=== PATIENT | male | born 1965 | race Caucasian/White ===

== ENCOUNTER 2020-09-13 14:19 | Emergency (ER) | payer MEDICARE, OTHER ==
[~2020-09-13 14:19] MED LIST: ALDACTONE25 MG PO; AMLODIPINE BESY10 MG PO; CATAPRES0.2 MG PO; COREG 25MG TAB25 MG PO; COZAAR100 MG PO; FISH OIL 1,0001 EACH PO; HUMALOG MI100 UNITS1 SC; HYDRALAZINE HCL25 MG PO; ISOSORBIDE MON120 MG PO; LASIX40 MG PO; LIPITOR40 MG PO; PROAIR HFA8.5 GM INH; PROTONIX40 MG PO; ROBITUSSIN COU237 M1 PO; SYNTHROID88 MCG PO; TRAZODONE HCL100 MG PO; ZOFRAN ODT 4 MG4 MG PO; ZOLOFT100 MG PO
[2020-09-13] MEDS ORDERED: IBUPROFEN800 MG PO (15:55)
== END 2020-09-13 16:20 | disposition home or self-care (01) ==
LOC: ER1 14:19
DX: S86.912A Strain of unspecified muscle(s) and tendon(s) at lower leg level, left leg, initial encounter (principal); I10 Essential (primary) hypertension; E11.9 Type 2 diabetes mellitus without complications; Z95.1 Presence of aortocoronary bypass graft; W19.XXXA Unspecified fall, initial encounter; Y92.009 Unspecified place in unspecified non-institutional (private) residence as the place of occurrence of the external cause
CPT/HCPCS: 73564; 96372; 99283; J1885

== ENCOUNTER → 2020-09-28 | Outpatient (CLI) | payer MEDICARE, OTHER ==
[~2020-09-28] MED LIST changes: +ARTHRITIS PAIN100 GM TP; +ASPIRIN EC81 MG PO; +CATAPRES 0.1MG0.1 MG PO; +CLARITIN10 MG PO; +FERROUS SULFAT325 M2 PO; +FLONASE 0.05% N16 GM; +IBUPROFEN800 MG PO; +NEURONTIN600 MG PO; +NOVOLIN 70100 UNIT/1 SC; +VITAMIN D21250 MCG PO
[2020-09-29 10:13] LABS: CREATININE, URINE 71.7 mg/dL (Not Estab.)
== END ==
LOC: KOH-I 14:22 → LAB 14:22 → KOH-I 16:30
PROVIDERS: Nurse Practitioner
DX: E11.9 Type 2 diabetes mellitus without complications (principal); M79.89 Other specified soft tissue disorders; M25.862 Other specified joint disorders, left knee; M11.262 Other chondrocalcinosis, left knee
CPT/HCPCS: 36415; 73700; 80048; 82043; 82570

== ENCOUNTER 2021-01-07 06:28 | Observation (INO) | payer OTHER ==
[~2021-01-07] VITALS: Ht 172.7 cm; Wt 117.9 kg
[~2021-01-07 06:28] MED LIST changes: -ARTHRITIS PAIN100 GM TP; -ASPIRIN EC81 MG PO; -CATAPRES 0.1MG0.1 MG PO; -CLARITIN10 MG PO; -FERROUS SULFAT325 M2 PO; -FLONASE 0.05% N16 GM; -NEURONTIN600 MG PO; -NOVOLIN 70100 UNIT/1 SC; -VITAMIN D21250 MCG PO
[2021-01-07 06:57] LABS: HEMOGLOBIN 13.4 gm/dl (14.0-17.5); RED BLOOD COUNT 4.33 M/UL (4.20-5.50); WHITE BLOOD COUNT 5.5 K/UL (4.5-11.0)
[2021-01-07 07:19] LABS: BUN/CREATININE RATIO 19 (0-10)
[2021-01-07] MEDS ORDERED: FERROUS SULFAT325 M2 PO (08:12)
[2021-01-07] MEDS ORDERED: NEURONTIN600 MG PO (08:18)
[2021-01-07] MEDS ORDERED: NOVOLIN 70100 UNIT/1 SC ×3 (11:59→12:00)
[2021-01-07] MEDS ORDERED: VITAMIN D21250 MCG PO (12:01)
[2021-01-07] MEDS ORDERED: CLARITIN10 MG PO (12:01)
[2021-01-07] MEDS ORDERED: ARTHRITIS PAIN100 GM TP (12:02)
[2021-01-07] MEDS ORDERED: FLONASE 0.05% N16 GM (12:03)
[2021-01-08 06:10] LABS: HEMOGLOBIN 13.1 gm/dl (14.0-17.5); RED BLOOD COUNT 4.25 M/UL (4.20-5.50)
[2021-01-08 06:11] LABS: WHITE BLOOD COUNT 7.5 K/UL (4.5-11.0)
[2021-01-08 06:40] LABS: BUN/CREATININE RATIO 19 (0-10)
[2021-01-08] MEDS ORDERED: CATAPRES 0.1MG0.1 MG PO (13:49)
[2021-01-08] MEDS ORDERED: ASPIRIN EC81 MG PO (13:49)
== END 2021-01-08 16:32 | disposition home or self-care (01) ==
LOC: ER1 06:28 → MED SURG 4 09:56 → CDU 09:56 → MED SURG 4 22:45
PROVIDERS: Emergency Medicine; Physician Assistant; ADMIT Internal Medicine
DX: I13.0 Hypertensive heart and chronic kidney disease with heart failure and stage 1 through stage 4 chronic kidney disease, or unspecified chronic kidney disease (principal); E11.22 Type 2 diabetes mellitus with diabetic chronic kidney disease; N18.30 Chronic kidney disease, stage 3 unspecified; I50.33 Acute on chronic diastolic (congestive) heart failure; J96.01 Acute respiratory failure with hypoxia; D69.6 Thrombocytopenia, unspecified; E11.65 Type 2 diabetes mellitus with hyperglycemia; I25.10 Atherosclerotic heart disease of native coronary artery without angina pectoris; G47.33 Obstructive sleep apnea (adult) (pediatric); I16.0 Hypertensive urgency; E78.5 Hyperlipidemia, unspecified; E03.9 Hypothyroidism, unspecified; E66.9 Obesity, unspecified; Z95.1 Presence of aortocoronary bypass graft; Z99.89 Dependence on other enabling machines and devices; Z89.511 Acquired absence of right leg below knee; Z68.39 Body mass index [BMI] 39.0-39.9, adult; Z79.4 Long term (current) use of insulin; Z79.899 Other long term (current) drug therapy; Z20.822 Contact with and (suspected) exposure to COVID-19
CPT/HCPCS: ECHO; 0240U; 36600; 71045; 80048; 80053; 82550; 82553; 82803; 82962; 83880; 84484; 85025; 93005; 93306; 96374; 96376; 99285; G0378; J0360; J1940

== ENCOUNTER → 2021-01-24 | Outpatient (CLI) | payer OTHER ==
[~2021-01-24] MED LIST changes: +AMITRIPTYLINE H25 MG PO; +ARTHRITIS PAIN100 GM TP; +ASPIRIN EC81 MG PO; +AUGMENTIN 875-1 EACH PO; +CATAPRES 0.1MG0.1 MG PO; +CLARITIN10 MG PO; +CLONIDINE HCL0.2 MG PO; +DRISDOL1250 MCG PO; +FERROUS SULFAT325 M2 PO; +FLONASE 0.05% N16 GM; +HUMULIN R500 UNIT/1 SC; +HYDROCODON-ACE1 EAC4 PO; +LOVAZA1 GM PO; +MEDROL DOSEPAK 24 MG PO; +METHOCARBAMOL500 MG PO; +NEURONTIN600 MG PO; +NORVASC10 MG PO; +NOVOLIN 70100 UNIT/1 SC; +PEPCID40 MG PO; +SPIRONOLACTONE25 MG PO; +VITAMIN D21250 MCG PO
== END ==
LOC: RAD 14:58
DX: M25.561 Pain in right knee (principal); M51.36 Other intervertebral disc degeneration, lumbar region; Z89.511 Acquired absence of right leg below knee
CPT/HCPCS: 72110; 73564

== ENCOUNTER 2021-02-09 10:19 | Emergency (ER) | payer OTHER ==
[~2021-02-09 10:19] MED LIST changes: -AMITRIPTYLINE H25 MG PO; -AUGMENTIN 875-1 EACH PO; -CLONIDINE HCL0.2 MG PO; -DRISDOL1250 MCG PO; -HUMULIN R500 UNIT/1 SC; -HYDROCODON-ACE1 EAC4 PO; -LOVAZA1 GM PO; -MEDROL DOSEPAK 24 MG PO; -METHOCARBAMOL500 MG PO; -NORVASC10 MG PO; -PEPCID40 MG PO; -SPIRONOLACTONE25 MG PO
[2021-02-09] MEDS ORDERED: HYDROCODON-ACE1 EAC4 PO (15:02)
[2021-02-09] MEDS ORDERED: METHOCARBAMOL500 MG PO (15:09)
[2021-02-09] MEDS ORDERED: MEDROL DOSEPAK 24 MG PO (15:09)
== END 2021-02-09 15:00 | disposition home or self-care (01) ==
LOC: ER1 10:19
DX: M48.061 Spinal stenosis, lumbar region without neurogenic claudication (principal); I25.10 Atherosclerotic heart disease of native coronary artery without angina pectoris; I50.9 Heart failure, unspecified; E11.9 Type 2 diabetes mellitus without complications; Z95.1 Presence of aortocoronary bypass graft; Z89.512 Acquired absence of left leg below knee
CPT/HCPCS: 72131; 96372; 99283; J2360; J2930

== ENCOUNTER 2021-02-14 19:19 | Emergency (ER) | payer OTHER ==
[~2021-02-14 19:19] MED LIST changes: +HYDROCODON-ACE1 EAC4 PO; +MEDROL DOSEPAK 24 MG PO; +METHOCARBAMOL500 MG PO
== END 2021-02-14 20:32 | disposition home or self-care (01) ==
LOC: ER1 19:19
DX: G89.29 Other chronic pain (principal); M54.9 Dorsalgia, unspecified
CPT/HCPCS: 96372; 96374; 99283; J2270; J2405

== ENCOUNTER 2021-02-15 18:48 | Inpatient (IN) | payer OTHER ==
[~2021-02-15] VITALS: Ht 172.7 cm; Wt 113.4 kg
[2021-02-15 19:23] LABS: HEMOGLOBIN 15.5 gm/dl (14.0-17.5); RED BLOOD COUNT 5.15 M/UL (4.20-5.50)
[2021-02-17 00:26] LABS: HEMOGLOBIN 14.1 gm/dl (14.0-17.5); RED BLOOD COUNT 4.7 M/UL (4.20-5.50); WHITE BLOOD COUNT 11.8 K/UL (4.5-11.0)
[2021-02-18 04:11] LABS: HEMOGLOBIN 13.6 gm/dl (14.0-17.5); RED BLOOD COUNT 4.54 M/UL (4.20-5.50); WHITE BLOOD COUNT 12.6 K/UL (4.5-11.0)
[2021-02-18] MEDS ORDERED: CLONIDINE HCL0.2 MG PO (10:37)
[2021-02-18] MEDS ORDERED: LASIX40 MG PO (10:39)
[2021-02-18] MEDS ORDERED: LOVAZA1 GM PO (10:43)
[2021-02-18] MEDS ORDERED: HUMULIN R500 UNIT/1 SC ×3 (10:47→10:49)
[2021-02-18 14:25] LABS: RBC (AUTOMATED) 100 10^6 (0); WBC (AUTOMATED 14 10^3 (0-5)
[2021-02-18 14:35] LABS: GLUCOSE,CSF 153 mg/dL (50-80); TOTAL PROTEIN,CSF 99 mg/dL (20-45)
[2021-02-18] MEDS ORDERED: NORVASC10 MG PO (16:15)
[2021-02-18] MEDS ORDERED: PEPCID40 MG PO (17:01)
[2021-02-18] MEDS ORDERED: AMITRIPTYLINE H25 MG PO (17:02)
[2021-02-19 07:00] LABS: BUN/CREATININE RATIO 28 (0-10)
[2021-02-19 10:26] LABS: HEMOGLOBIN 13.3 gm/dl (14.0-17.5); RED BLOOD COUNT 4.57 M/UL (4.20-5.50); WHITE BLOOD COUNT 14.3 K/UL (4.5-11.0)
[2021-02-21 18:11] LABS: AMPHETAMINES, URINE Negative ng/mL (Cutoff=1000); BARBITURATE Negative ng/mL (Cutoff=200); BENZODIAZEPINES Negative ng/mL (Cutoff=200); CANNABINOIDS Negative ng/mL (Cutoff=20); COCAINE (METABOLITE) Negative ng/mL (Cutoff=300); CREATININE 88.7 mg/dL (20.0-300.0); MEPERIDINE Negative ng/mL (Cutoff=200); METHADONE Negative ng/mL (Cutoff=300); OPIATES Negative ng/mL (Cutoff=300); OPIATES See Final Results ng/mL (Cutoff=300); PHENCYCLIDINE Negative ng/mL (Cutoff=25); PROPOXYPHENE Negative ng/mL (Cutoff=300)
== END 2021-02-19 12:00 | disposition home or self-care (01) | DRG 637 ==
LOC: ER1 18:48 → CDU 02-18 09:00
PROVIDERS: Emergency Medicine; Family Medicine; Physician Assistant; ADMIT Internal Medicine
PROC: 009U3ZX Drainage of Spinal Canal, Percutaneous Approach, Diagnostic (ICD-10-PCS; principal; 2021-02-18)
DX: E11.00 Type 2 diabetes mellitus with hyperosmolarity without nonketotic hyperglycemic-hyperosmolar coma (NKHHC) (principal); G92 Toxic encephalopathy; N17.9 Acute kidney failure, unspecified; I13.0 Hypertensive heart and chronic kidney disease with heart failure and stage 1 through stage 4 chronic kidney disease, or unspecified chronic kidney disease; N18.30 Chronic kidney disease, stage 3 unspecified; Z20.822 Contact with and (suspected) exposure to COVID-19; E11.22 Type 2 diabetes mellitus with diabetic chronic kidney disease; I25.10 Atherosclerotic heart disease of native coronary artery without angina pectoris; E66.01 Morbid (severe) obesity due to excess calories; E03.9 Hypothyroidism, unspecified; E78.5 Hyperlipidemia, unspecified; D69.6 Thrombocytopenia, unspecified; E11.65 Type 2 diabetes mellitus with hyperglycemia; I16.0 Hypertensive urgency; G47.33 Obstructive sleep apnea (adult) (pediatric); Z95.5 Presence of coronary angioplasty implant and graft; Z90.49 Acquired absence of other specified parts of digestive tract; Z89.511 Acquired absence of right leg below knee; Z98.41 Cataract extraction status, right eye; Z98.42 Cataract extraction status, left eye; Z98.890 Other specified postprocedural states; Z80.1 Family history of malignant neoplasm of trachea, bronchus and lung; Z83.3 Family history of diabetes mellitus; Z99.81 Dependence on supplemental oxygen; Z79.899 Other long term (current) drug therapy; Z79.82 Long term (current) use of aspirin; Z79.4 Long term (current) use of insulin
CPT/HCPCS: 36600; 70450; 70551; 71045; 80048; 80053; 80307; 81001; 82140; 82550; 82553; 82607; 82803; 82945; 82962; 83605; 83735; 83874; 83880; 84100; 84157; 84439; 84443; 84484; 85025; 85610; 86140; 87040; 87070; 87086; 87205; 87206; 87252; 89051; 93005; 96374; 96375; 96376; 99284; G0480; J0360; J1170; J1200; J1630; J2060; J2270; J2405; J3411; J3486; J7030; U0002

== ENCOUNTER 2021-02-22 04:58 | Inpatient (IN) | payer OTHER ==
[~2021-02-22] VITALS: Ht 172.7 cm; Wt 108.9 kg
[~2021-02-22 04:58] MED LIST changes: +AMITRIPTYLINE H25 MG PO; +CLONIDINE HCL0.2 MG PO; +HUMULIN R500 UNIT/1 SC; +LOVAZA1 GM PO; +NORVASC10 MG PO; +PEPCID40 MG PO
[2021-02-22 05:35] LABS: HEMOGLOBIN 11.7 gm/dl (14.0-17.5); RED BLOOD COUNT 4.19 M/UL (4.20-5.50)
[2021-02-22 05:36] LABS: WHITE BLOOD COUNT 28.6 K/UL (4.5-11.0)
[2021-02-22 06:01] LABS: BUN/CREATININE RATIO 20 (0-10)
[2021-02-22 14:31] LABS: ADENOVIRUS F 40/41 Not Detected (Negative); ASTROVIRUS Not Detected (Negative); CAMPYLOBACTER Not Detected (Negative); CLOSTRIDIUM DIFFICILE TOX A/B Not Detected (Negative); CRYPTOSPORIDIUM Not Detected (Negative); E.COLI 0157 Not Detected (Negative); ENTAMOEBA HISTOLYTICA Not Detected (Negative); ENTEROAGGREGATIVE E.COLI (EAEC Not Detected (Negative); ENTEROPATHOGENIC E.COLI (EPEC) Not Detected (Negative); ENTEROTOXIGENIC E.COLI (ETEC) Not Detected (Negative); GIARDIA LAMBLIA Not Detected (Negative); NOROVIRUS GI/GII Not Detected (Negative); PLESIOMONAS SHIGELLOIDES Not Detected (Negative); ROTOVIRUS A Not Detected (Negative); SALMONELLA Not Detected (Negative); SAPOVIRUS Not Detected (Negative); SHIG/ENTEROINVAS.ECOLI (EIEC) Not Detected (Negative); SHIGA-LIK TOX.PRO.E.COLI (STEC Not Detected (Negative); VIBRIO Not Detected (Negative); VIBRIO CHOLERAE Not Detected (Negative); YERSINIA ENTEROCOLITICA Not Detected (Negative)
[2021-02-23 04:26] LABS: HEMOGLOBIN 10.1 gm/dl (14.0-17.5)
[2021-02-23 04:30] LABS: RED BLOOD COUNT 3.53 M/UL (4.20-5.50); WHITE BLOOD COUNT 15.8 K/UL (4.5-11.0)
[2021-02-24 02:36] LABS: HEMOGLOBIN 10.5 gm/dl (14.0-17.5); RED BLOOD COUNT 3.76 M/UL (4.20-5.50); WHITE BLOOD COUNT 16.1 K/UL (4.5-11.0)
[2021-02-25 08:26] LABS: HEMOGLOBIN 10.8 gm/dl (14.0-17.5); RED BLOOD COUNT 3.9 M/UL (4.20-5.50); WHITE BLOOD COUNT 12.4 K/UL (4.5-11.0)
[2021-02-25 09:00] LABS: BUN/CREATININE RATIO 33 (0-10)
[2021-02-26] MEDS ORDERED: CLONIDINE HCL0.2 MG PO (14:42)
[2021-02-26] MEDS ORDERED: TRAZODONE HCL100 MG PO (14:43)
[2021-02-26] MEDS ORDERED: SPIRONOLACTONE25 MG PO (14:44)
[2021-02-26] MEDS ORDERED: DRISDOL1250 MCG PO (14:45)
== END 2021-02-25 19:56 | disposition home or self-care (01) | DRG 871 ==
LOC: ER1 04:58 → CDU 09:37 → M/S 02-24 09:57
PROVIDERS: Emergency Medicine; Physician Assistant Medical; ADMIT Internal Medicine Infectious Disease
PROC: 0F9430Z Drainage of Gallbladder with Drainage Device, Percutaneous Approach (ICD-10-PCS; principal; 2021-02-22)
DX: A41.9 Sepsis, unspecified organism (principal); R65.21 Severe sepsis with septic shock; G93.41 Metabolic encephalopathy; N17.0 Acute kidney failure with tubular necrosis; K80.00 Calculus of gallbladder with acute cholecystitis without obstruction; I13.0 Hypertensive heart and chronic kidney disease with heart failure and stage 1 through stage 4 chronic kidney disease, or unspecified chronic kidney disease; E87.2 Acidosis; Z20.822 Contact with and (suspected) exposure to COVID-19; R19.7 Diarrhea, unspecified; E11.649 Type 2 diabetes mellitus with hypoglycemia without coma; E87.6 Hypokalemia; D69.6 Thrombocytopenia, unspecified; G47.33 Obstructive sleep apnea (adult) (pediatric); I50.9 Heart failure, unspecified; N18.30 Chronic kidney disease, stage 3 unspecified; E11.22 Type 2 diabetes mellitus with diabetic chronic kidney disease; I25.10 Atherosclerotic heart disease of native coronary artery without angina pectoris; E03.9 Hypothyroidism, unspecified; E78.5 Hyperlipidemia, unspecified; Z89.511 Acquired absence of right leg below knee; Z95.1 Presence of aortocoronary bypass graft; Z79.82 Long term (current) use of aspirin; Z79.899 Other long term (current) drug therapy; Z80.1 Family history of malignant neoplasm of trachea, bronchus and lung; Z90.89 Acquired absence of other organs; Z98.890 Other specified postprocedural states; Z83.3 Family history of diabetes mellitus
CPT/HCPCS: 36415; 71045; 76705; 80048; 80053; 80307; 81001; 82009; 82550; 82553; 82962; 83605; 83690; 83735; 83874; 84439; 84443; 84484; 85025; 85027; 87040; 87070; 87077; 87186; 87507; 93005; 96365; 96375; 99285; J1650; J2060; J2185; J7120; U0002

== ENCOUNTER 2021-02-26 00:26 | Inpatient (IN) | payer OTHER ==
[~2021-02-26] VITALS: Ht 172.7 cm; Wt 127.0 kg
[2021-02-26 02:11] LABS: HEMOGLOBIN 11.7 gm/dl (14.0-17.5); RED BLOOD COUNT 4.17 M/UL (4.20-5.50)
[2021-02-26 02:13] LABS: WHITE BLOOD COUNT 19.9 K/UL (4.5-11.0)
[2021-02-26] MEDS ORDERED: CLONIDINE HCL0.2 MG PO (14:42)
[2021-02-26] MEDS ORDERED: TRAZODONE HCL100 MG PO (14:43)
[2021-02-26] MEDS ORDERED: SPIRONOLACTONE25 MG PO (14:44)
[2021-02-26] MEDS ORDERED: DRISDOL1250 MCG PO (14:45)
[2021-02-27 06:13] LABS: RED BLOOD COUNT 3.61 M/UL (4.20-5.50); WHITE BLOOD COUNT 14.8 K/UL (4.5-11.0)
[2021-02-28 07:20] LABS: HEMOGLOBIN 8.9 gm/dl (14.0-17.5)
[2021-02-28 07:29] LABS: RED BLOOD COUNT 3.23 M/UL (4.20-5.50); WHITE BLOOD COUNT 10.7 K/UL (4.5-11.0)
--- NOTE | 2021-02-28 20:00 | NUR ---
Patient set off bed alarm. Me and Sujatha PATCH WASHER walk into the room and patient is sitting on the side of the bed. Patient states he wishes to go home. I explain to patient that he has not been discharged. I ask the patient to get back into bed because we could not leave him sitting on the side of the bed. Patient ignored me and Sujatha for 10 minutes before getting back into bed. Patient stated that he wanted his medication. I told patient to get back into bed and I could go get his medicine. I came back with his medicine which included IV morphine. Patient stated "I do not want this IV anymore, I want it out" and ripped his IV out before I could administer the morphine. I told patient that I would have to start another IV. Patient stated that he was not going to let me start another IV for him and that he refused the morphine and did not care about his pain medication. I educated the patient about the need for an IV incase of emergency, but he stated I was not going to stick him again. Patient also refused blood sugar check. Patient did take all night time PO meds.
[2021-03-01 07:40] LABS: WHITE BLOOD COUNT 12.7 K/UL (4.5-11.0)
[2021-03-01 07:50] LABS: RED BLOOD COUNT 3.56 M/UL (4.20-5.50)
[2021-03-01 07:52] LABS: BUN/CREATININE RATIO 29 (0-10)
[2021-03-01] MEDS ORDERED: AUGMENTIN 875-1 EACH PO (09:54)
== END 2021-03-01 10:50 | disposition home or self-care (01) | DRG 418 ==
LOC: ER1 00:26 → CDU 07:43 → M/S 13:00
PROVIDERS: Physician Assistant; Physician Assistant Medical; ADMIT Surgery
PROC: 3E02340 Introduction of Influenza Vaccine into Muscle, Percutaneous Approach (ICD-10-PCS; 2021-02-26)
PROC: 0FT44ZZ Resection of Gallbladder, Percutaneous Endoscopic Approach (ICD-10-PCS; principal; 2021-02-26 10:53)
DX: K80.12 Calculus of gallbladder with acute and chronic cholecystitis without obstruction (principal); I13.0 Hypertensive heart and chronic kidney disease with heart failure and stage 1 through stage 4 chronic kidney disease, or unspecified chronic kidney disease; Z68.41 Body mass index [BMI] 40.0-44.9, adult; E11.22 Type 2 diabetes mellitus with diabetic chronic kidney disease; N18.30 Chronic kidney disease, stage 3 unspecified; Z20.822 Contact with and (suspected) exposure to COVID-19; G47.33 Obstructive sleep apnea (adult) (pediatric); E78.5 Hyperlipidemia, unspecified; E03.9 Hypothyroidism, unspecified; E11.51 Type 2 diabetes mellitus with diabetic peripheral angiopathy without gangrene; I73.9 Peripheral vascular disease, unspecified; E11.69 Type 2 diabetes mellitus with other specified complication; K82.A1 Gangrene of gallbladder in cholecystitis; I25.10 Atherosclerotic heart disease of native coronary artery without angina pectoris; I50.9 Heart failure, unspecified; E66.01 Morbid (severe) obesity due to excess calories; D63.1 Anemia in chronic kidney disease; Z89.611 Acquired absence of right leg above knee; Z95.1 Presence of aortocoronary bypass graft; Z90.49 Acquired absence of other specified parts of digestive tract; Z98.890 Other specified postprocedural states; Z98.41 Cataract extraction status, right eye; Z98.42 Cataract extraction status, left eye; Z79.899 Other long term (current) drug therapy; Z79.82 Long term (current) use of aspirin; Z83.3 Family history of diabetes mellitus; Z80.1 Family history of malignant neoplasm of trachea, bronchus and lung; Z86.19 Personal history of other infectious and parasitic diseases; Z23 Encounter for immunization
CPT/HCPCS: 36415; 73564; 80048; 80053; 81001; 82247; 82248; 82962; 83605; 83735; 85025; 85027; 85652; 86140; 87086; 93005; 99285; J1100; J1170; J1885; J2001; J2250; J2270; J2405; J2543; J2704; J2710; J3010; J7030; J7120; U0002

== ENCOUNTER 2021-05-17 19:52 | Emergency (ER) | payer OTHER ==
[~2021-05-17 19:52] MED LIST changes: +AUGMENTIN 875-1 EACH PO; +DRISDOL1250 MCG PO; +SPIRONOLACTONE25 MG PO
[2021-05-17 20:41] LABS: RED BLOOD COUNT 4.9 M/UL (4.20-5.50); WHITE BLOOD COUNT 9.5 K/UL (4.5-11.0)
[2021-05-17 20:58] LABS: BUN/CREATININE RATIO 20 (0-10)
[2021-05-17] MEDS ORDERED: ZOFRAN4 MG PO (22:22)
== END 2021-05-17 22:30 | disposition home or self-care (01) ==
LOC: ER1 19:52
PROVIDERS: Physician Assistant Medical
DX: R11.2 Nausea with vomiting, unspecified (principal); R19.7 Diarrhea, unspecified; Z20.822 Contact with and (suspected) exposure to COVID-19; Z95.1 Presence of aortocoronary bypass graft; I11.0 Hypertensive heart disease with heart failure; I50.9 Heart failure, unspecified
CPT/HCPCS: 80053; 85025; 99284; U0002

== ENCOUNTER 2021-06-14 20:26 | Inpatient (IN) | payer OTHER ==
[~2021-06-14] VITALS: Ht 172.7 cm; Wt 108.9 kg
[~2021-06-14 20:26] MED LIST changes: +ZOFRAN4 MG PO
[2021-06-14 21:23] LABS: HEMOGLOBIN 12.2 gm/dl (14.0-17.5); RED BLOOD COUNT 4.41 M/UL (4.20-5.50); WHITE BLOOD COUNT 4.9 K/UL (4.5-11.0)
[2021-06-15] MEDS ORDERED: GABAPENTIN600 MG PO (01:05)
[2021-06-15] MEDS ORDERED: SPIRONOLACTONE50 MG PO (01:05)
[2021-06-15 02:36] LABS: HEMOGLOBIN 11.3 gm/dl (14.0-17.5); RED BLOOD COUNT 4.07 M/UL (4.20-5.50); WHITE BLOOD COUNT 4.3 K/UL (4.5-11.0)
[2021-06-15 03:24] LABS: BUN/CREATININE RATIO 20 (0-10)
[2021-06-15] MEDS ORDERED: FUROSEMIDE40 MG PO (13:35)
[2021-06-15] MEDS ORDERED: POTASSIUM CHLO20 ME1 PO (13:35)
[2021-06-15] MEDS ORDERED: HUMULIN R500 UNIT/1 SC (13:39)
[2021-06-15 21:24] LABS: BORDETELLA PARAPERTUSSIS Not Detected (Not Detectd); BORDETELLA PERTUSSIS Not Detected (Not Detectd); CHLAMYDIA PNEUMONIAE Not Detected (Not Detectd); CORONAVIRUS HKU1 Not Detected (Not Detectd); CORONAVIRUS NL63 Not Detected (Not Detectd); CORONAVIRUS OC43 Not Detected (Not Detectd); CORONOAVIRUS 229E Not Detected (Not Detectd); HUMAN RHINOVIRUS/ENTEROVIRUS Not Detected (Not Detectd); INFLUENZA A Not Detected (Not Detectd); INFLUENZA B Not Detected (Not Detectd); MYCOPLASMA PNEUMONIAE Not Detected (Not Detectd); PARAINFLUENZA VIRUS 1 Not Detected (Not Detectd); PARAINFLUENZA VIRUS 2 Not Detected (Not Detectd); PARAINFLUENZA VIRUS 3 Not Detected (Not Detectd); PARAINFLUENZA VIRUS 4 Not Detected (Not Detectd); RESPIRATORY SYNCYTIAL VIRUS Not Detected (Not Detectd)
[2021-06-15 22:24] LABS: SARS-CoV-2 NOT DETECTED (Not Detectd)
[2021-06-15 22:26] LABS: HUMAN METAPNEUMOVIRUS DETECTED (Not Detectd)
[2021-06-16 08:15] LABS: HEMOGLOBIN 11.4 gm/dl (14.0-17.5); RED BLOOD COUNT 4.24 M/UL (4.20-5.50)
[2021-06-16 14:47] LABS: ACINETOBACTER BAUMANNII Not Detected (Negative); CANDIDA ALBICANS Not Detected (Negative); CANDIDA KRUSEI Not Detected (Negative); CANDIDA TROPICALIS Not Detected (Negative); ENTEROCOCCUS Not Detected (Negative); ESCHERICHIA COLI Not Detected (Negative); HAEMOPHILUS INFLUENZAE Not Detected (Negative); KLEBSIELLA OXYTOCA Not Detected (Negative); KLEBSIELLA PNEUMONIAE Not Detected (Negative); KPC-CARBAPENEM-RESISTANCE GENE Not Detected (Negative); PROTEUS Not Detected (Negative); PSEUDOMONAS AERUGINOSA Not Detected (Negative); SERRATIA MARCESANS Not Detected (Negative); STAPHYLOCOCCUS AUREUS Not Detected (Negative); STREP AGALACTIAE (GROUP B) Not Detected (Negative); STREP PYOGENES (GROUP A) Not Detected (Negative); STREPTOCOCCUS Not Detected (Negative); vanA/B (VANCOMYCIN RESIST GENE Not Detected (Negative)
[2021-06-16 16:17] LABS: STAPHYLOCOCCUS DETECTED (Negative); mecA (METHICILLIN RESIST GENE DETECTED (Negative)
[2021-06-17] MEDS ORDERED: BENZONATATE100 MG PO ×2 (10:47→10:54)
[2021-06-17] MEDS ORDERED: COMPACT COMPRE1 EACH MC (10:47)
[2021-06-17] MEDS ORDERED: IPRAT-ALBUT 0.5-3 ML NEB (10:47)
--- NOTE | 2021-06-17 14:21 | NUR ---
02 sat down to 83% room air
[2021-06-19 16:14] LABS: ORGANISM ID Not indicated. (.); SPECIMEN SOURCE Urine (.); STREPTOCOCCUS PNEUMONIAE AG Negative (Negative)
== END 2021-06-17 16:06 | disposition home or self-care (01) | DRG 193 ==
LOC: ER1 20:26 → CDU 23:06 → MED SURG 4 23:06
PROVIDERS: Emergency Medicine; Internal Medicine Infectious Disease; ADMIT Internal Medicine
DX: J12.3 Human metapneumovirus pneumonia (principal); J96.21 Acute and chronic respiratory failure with hypoxia; I50.33 Acute on chronic diastolic (congestive) heart failure; I13.0 Hypertensive heart and chronic kidney disease with heart failure and stage 1 through stage 4 chronic kidney disease, or unspecified chronic kidney disease; Z20.822 Contact with and (suspected) exposure to COVID-19; N18.30 Chronic kidney disease, stage 3 unspecified; E11.22 Type 2 diabetes mellitus with diabetic chronic kidney disease; E66.01 Morbid (severe) obesity due to excess calories; Z68.36 Body mass index [BMI] 36.0-36.9, adult; D69.6 Thrombocytopenia, unspecified; G47.33 Obstructive sleep apnea (adult) (pediatric); E11.51 Type 2 diabetes mellitus with diabetic peripheral angiopathy without gangrene; I73.9 Peripheral vascular disease, unspecified; Z95.5 Presence of coronary angioplasty implant and graft; Z89.511 Acquired absence of right leg below knee; Z99.81 Dependence on supplemental oxygen; Z79.4 Long term (current) use of insulin; Z79.899 Other long term (current) drug therapy
CPT/HCPCS: 36415; 36600; 71045; 71046; 80048; 80053; 81001; 82550; 82553; 82803; 82962; 83036; 83540; 83550; 83605; 83735; 83880; 84100; 84484; 85025; 85027; 85652; 86140; 87040; 87070; 87077; 87086; 87150; 87186; 87205; 87278; 87633; 87899; 93005; 94640; 94664; 94760; 96374; 99285; J0360; J1650; J1940; J2185; J2270; U0002